=== PATIENT | female | born 1990 | race Caucasian/White ===

== ENCOUNTER 2016-05-10 09:26 | Emergency (ER) | payer SELFPAY ==
[2016-05-10 09:38] VITALS: TEMP 98.6
[2016-05-10] MEDS ORDERED: FLUORESCEIN SODIUM 1 MG STRIP OP ONE (09:59)
[2016-05-10] MEDS ORDERED: PROPARACAINE 0.5% 15 ML OPHT DROP ONE (09:59)
[2016-05-10] MEDS ORDERED: PROPARACAINE 0.5% 15 ML OPHT DROP RTEYE ONE (10:03)
--- NOTE | 2016-05-10 10:31 | EDPHY ---
H & P Stated Complaint: rash on face, neck pain Time Seen by Provider: 05/10/16 09:46 HPI/ROS: CHIEF COMPLAINT: Facial rash HISTORY OF PRESENT ILLNESS: Patient presents to the ED with a 2 day history of a facial rash and associated pain around her left eye. The patient denies prior history of the symptoms. The patient was seen at urgent care and referred to the ED for further evaluation. The patient denies vision loss or ocular pain. Patient denies significant past medical history such as diabetes or immunosuppressive condition. The patient reports that her pain around the area of her rashes mild in nature. REVIEW OF SYSTEMS: A comprehensive 10 point review of systems is otherwise negative aside from elements mentioned in the history of present illness. Source: Patient Exam Limitations: No limitations - Personal History LMP (Females 10-55): 15-21 Days Ago Current Tetanus/Diphtheria Vaccine: Yes Current Tetanus Diphtheria and Acellular Pertussis (TDAP): Yes Tetanus Vaccine Date: < 10 years - Medical/Surgical History Hx Asthma: No Hx Chronic Respiratory Disease: No Hx Diabetes: No Hx Cardiac Disease: No Hx Renal Disease: No Hx Cirrhosis: No Hx Alcoholism: No Hx HIV/AIDS: No Hx Splenectomy or Spleen Trauma: No Other PMH: medical none. surgery none - Social History Smoking Status: Current every day smoker - Physical Exam Exam: General: No acute distress Head: Fascicular rash noted to left forehead and in the left periorbital region Eye: Examination with fluorescein dye demonstrates no evidence of a corneal rash. No conjunctival injection Neck: Minimal tender lymphadenopathy noted in the periauricular lymph nodes. Lungs: Clear to auscultation bilaterally Neuro: Cranial nerves 2-12 intact, no evidence of a Santacruz's palsy Skin: Described above Constitutional: Initial Vital Signs Temperature (C) 37 C 05/10/16 09:36 Heart Rate 113 H 05/10/16 09:36 Respiratory Rate 20 05/10/16 09:36 Blood Pressure 120/77 05/10/16 09:36 O2 Sat (%) 98 05/10/16 09:36 O2 Delivery Mode Room Air Allergies/Adverse Reactions: No Known Allergies Allergy (Verified 05/10/16 09:36) Home Medications: Medication Instructions Recorded Valacyclovir HCl [Valtrex] 1,000 mg PO TID #21 tab 05/10/16 predniSONE [prednisone 20mg (RX)] 3 tab PO DAILY #15 tab 05/10/16 Medical Decision Making ED Course/Re-evaluation: The patient presents to the ED with a shingles outbreak around her left eye. There is no evidence of corneal involvement. The patient will be treated with Valtrex and prednisone. The patient is referred to our on-call outpatient physician for a recheck. She is advised to return to the ED for any severe ocular pain, blurry vision or other concerns. Differential Diagnosis: Differential diagnosis considered includes cellulitis, herpes ophthalmicus, zoster - Data Points Medications Given: Discontinued Medications Proparacaine HCl (Alcaine 0.5%) 1 drops RTEYE ONCE ONE Stop: 05/10/16 10:04 Last Admin: 05/10/16 10:03 Dose: 1 drop Departure - Departure Disposition: Home, Routine, Self-Care Clinical Impression: Shingles Condition: Good Instructions: Shingles (ED) Referrals: Miri Gayle MD [Medical Doctor] - As per Instructions
[2016-05-10 10:52] VITALS: BP 104/67; PULSE 87; RESP 16; O2SAT 97
== END 2016-05-10 10:53 | disposition home or self-care (01) ==
DX: B02.9 Zoster without complications (principal); F17.200 Nicotine dependence, unspecified, uncomplicated